=== PATIENT | male | born 1995 | race Two or more races ===

== ENCOUNTER 2017-12-01 13:09 | Emergency (ER) | payer SELFPAY ==
[~2017-12-01] VITALS: Ht 170.2 cm; Wt 90.7 kg
[2017-12-01 13:39] VITALS: Ht 170.2 cm; Wt 90.7 kg
[2017-12-01 18:32] VITALS: BP 120/64
== END 2017-12-01 18:32 | disposition home or self-care (01) ==
LOC: ED 13:09
DX: M25.562 Pain in left knee (principal)
CPT/HCPCS: J1885; Q0092